=== PATIENT | male | born 1985 ===

== ENCOUNTER 2017-06-24 17:38 | Emergency (ER) | payer OTHER ==
[~2017-06-24] VITALS: Ht 170.2 cm; Wt 57.2 kg
[2017-06-24 17:46] VITALS: BP 113/47; PULSE 97; TEMP 37; O2SAT 92; Ht 170.2 cm; Wt 57.2 kg
[2017-06-24] MEDS ORDERED: ALPR1TAB3 PO (17:58)
[2017-06-24] MEDS ORDERED: BUPR8MIS SL (17:58)
--- NOTE | 2017-06-24 19:07 | EMERGENCY ROOM VISIT NOTE ---
History First contact with patient: 17:52 Chief Complaint: MEDICATION REFILL REQUEST Stated Complaint: SEVERE ANXIETY,DEPRESSION,XARAX WITHDRAWL History of Present Illness The patient is a 31 year old male who presents to the Emergency Room requesting a prescription of Xanax. The patient states that he has a history of anxiety and depression. He does report that he has been more depressed recently, because his mother a few months ago and his father was recently diagnosed with cancer. He states this caused many fights with his fiance, causing them to break up. He reports that recently, his fiance became upset with him and stated that his medications were "the only thing that made him happy," and flushed the remainder of his medications down the toilet. He states that he thinks he may be having withdrawal from Xanax since he has not had it for several days. He reports feeling depressed and having a decreased appetite. He has also been working long days and has difficulty getting through his workday without taking the Xanax. He has an appointment with a new primary care provider in 10 days and is requesting a prescription of Xanax until he is able to be seen by them. He reports that he last received a prescription for this 2.5 weeks ago. He denies any suicidal or homicidal ideations. Review of Systems A complete 10 point review of systems was reviewed with the patient with pertinent positives and negatives as per history of present illness. All else were negative. Past Medical/Surgical History Medical Problems: (1) Anxiety (2) Depression (3) Hypertension Social History Smoking Status: Current Every Day Smoker Alcohol Use: none Marital Status: single Housing Status: lives alone Current/Historical Medications Scheduled Alprazolam (Xanax), 1 MG PO BID Buprenorphine Hcl-Naloxone Hcl (Suboxone 8-2 Mg), 1 EA SL BID Physical Exam Vital Signs Date Time Temp Pulse Resp B/P (MAP) Pulse Ox O2 Delivery O2 Flow Rate FiO2 06/24/17 17:46 37.0 97 18 113/47 92 Room Air Physical Exam VITALS: Vitals are noted on the nurse's note and reviewed by myself. Vital signs stable. GENERAL: This is a 31-year-old male, slightly anxious appearing, nondiaphoretic , well-developed well-nourished. NEURO: Patient was alert and oriented to person place and time. Remainder of exam was not able to be completed, as patient left after being confronted regarding his prescription history. Medical Decision & Procedures Medical Decision The patient was evaluated as above. He has a history of anxiety and depression and presents today requesting a prescription for Xanax. The patient initially told me that he was prescribed this regularly and that his last prescription was 2.5 weeks ago. I informed the patient that I would have to verify this information by checking the PDMP. The patient then admitted to me that he had not received a prescription for Xanax for quite some time, as he was imprisoned and released in December 2016. He states he did have some Xanax left after that but did not have to take them until his mother . He admits to me that he has resorted to buying these off the street in the past. I informed the patient that unfortunately, I am not able to provide him with this prescription, especially given that he initially lied to me about this information. He does have an appointment scheduled with his primary care provider and was instructed to keep that appointment. I did offer him mental health evaluation, but he declined. He became upset when I told him I would not be able to give him this prescription and left the emergency department without receiving discharge papers. [place] Drug Monitoring Program Search Results: patient reviewed within database (no rx for Xanax since August of 2015) Medication Reconcilliation Current Medication List: was personally reviewed by me Blood Pressure Screening Patient's blood pressure: Normal blood pressure Impression Primary Impression: Medication requested by patient but not prescribed or administered Departure Information Referrals No Doctor, Assigned (PCP) Forms HOME CARE DOCUMENTATION FORM, IMPORTANT VISIT INFORMATION Patient Instructions My [facility]
== END 2017-06-24 18:20 | disposition home or self-care (01) ==
LOC: C.EDB 17:40 → C.EDD 18:20
DX: Z76.0 Encounter for issue of repeat prescription (principal); F41.9 Anxiety disorder, unspecified; F32.9 Major depressive disorder, single episode, unspecified; I10 Essential (primary) hypertension; F17.200 Nicotine dependence, unspecified, uncomplicated